=== PATIENT | female | born 1955 | race African-American/Black ===

== ENCOUNTER 2022-06-29 11:18 | Inpatient (IN) | payer MEDICARE, OTHER ==
[~2022-06-29] VITALS: Ht 170.2 cm; Wt 123.4 kg
[2022-06-29 12:24] LABS: HEMATOCRIT. 25.4 % (36.0-48.0); HEMOGLOBIN. 7.7 g/dL (12.0-16.0); MEAN CORPUSCULAR HEMOGLOBIN 20.8 pg (28.0-32.0); MEAN CORPUSCULAR VOLUME 68.1 fL (81.0-99.0); MEAN PLATELET VOLUME 9.1 fl (7.4-10.4); PLATELET 130 x1000/uL (130-400); RED BLOOD CELL COUNT 3.73 mill/uL (4.2-5.4); RED CELL DISTRIBUTION WIDTH 19.1 % (11.6-14.6)
[2022-06-29 12:27] LABS: CHLORIDE 109 mEq/L (98-107)
[2022-06-29] MEDS ORDERED: FUROSEMIDE 40MG/4ML VIAL IV ONE (12:30)
[2022-06-29] MEDS ORDERED: NITROGLYCERIN OINT 1GM/INCH UDPKT TD ONE (12:30)
[2022-06-29] MEDS: ASPIRIN 81MG TABLET PO ONE ×2 (14:13→14:32)
[2022-06-29 14:26] LABS: D-DIMER 6.61 mg/L FEU (<0.50); INR 1.1; PARTIAL THROMBOPLASTIN TIME 23.4 sec (23.4-31.0); PROTHROMBIN TIME 11.4 sec (9.6-11.0)
[2022-06-29] MEDS ORDERED: ACETAMINOPHEN 325MG TABLET PO PRN (18:00)
[2022-06-29] MEDS ORDERED: ONDANSETRON HCL 4MG/2ML INJ IV PRN (18:00)
[2022-06-29] MEDS ORDERED: IPRATROPIUM/ALBUTEROL 0.5-3(2.5)MG/3ML NEB HHN PRN (18:00)
[2022-06-29] MEDS ORDERED: DOCUSATE SODIUM 100MG CAPSULE PO PRN (18:00)
[2022-06-29] MEDS ORDERED: CLONIDINE 0.1MG TABLET PO PRN (18:00)
[2022-06-29] MEDS ORDERED: LORAZEPAM 0.5MG TABLET PO PRN (18:00)
[2022-06-29] MEDS ORDERED: NALOXONE HCL 0.4MG/ML VIAL IV PRN (18:00)
[2022-06-29] MEDS ORDERED: IOHEXOL-350 100 ML BOTTLE ONE (18:32)
[2022-06-29 18:37] LABS: PLATELET ESTIMATE NORMAL
[2022-06-29 22:15] VITALS: BP 122/68
[2022-06-29] MEDS ORDERED: AMLO5TAB88 PO (22:37)
[2022-06-29] MEDS ORDERED: FURO40TA5 PO (22:37)
[2022-06-29] MEDS ORDERED: FERR324T4 PO (22:37)
[2022-06-29] MEDS ORDERED: PANT40TA51 PO (22:37)
[2022-06-29] MEDS ORDERED: CYCL5TAB PO (22:37)
[2022-06-29] MEDS ORDERED: METO5TAB2 PO (22:37)
[2022-06-29] MEDS ORDERED: DICL75TA5 PO (22:37)
[2022-06-29] MEDS ORDERED: SCOP1PAT2 (22:37)
[2022-06-29] MEDS ORDERED: GABA-532 PO (22:37)
[2022-06-29] MEDS ORDERED: TIZA-204 PO (22:37)
[2022-06-29] MEDS ORDERED: SERT25TA74 PO (22:37)
[2022-06-29] MEDS ORDERED: LACT10SO3 PO (22:37)
[2022-06-29] MEDS ORDERED: MECL-217 PO (22:37)
[2022-06-29] MEDS ORDERED: PROP10TA10 PO (22:37)
[2022-06-29 23:28] VITALS: BP 122/68
[2022-06-30 00:05] VITALS: BP 115/66
[2022-06-30] MEDS: HYDROCODONE/ACETAMINOPHEN 5/325MG TABLET PO PRN ×2 (02:59→22:08)
[2022-06-30 04:00] VITALS: BP 95/62
[2022-06-30 05:56] LABS: BASOPHILS % 0.4 % (0.0-2.0); HEMATOCRIT. 25.3 % (36.0-48.0); HEMOGLOBIN. 7.6 g/dL (12.0-16.0); LYMPHOCYTES % 12.7 % (20.0-50.0); MEAN CORPUSCULAR HEMOGLOBIN 20.4 pg (28.0-32.0); MEAN PLATELET VOLUME 9.3 fl (7.4-10.4); MONOCYTES % 22.6 % (2.0-8.0); NEUTROPHILS % 64.3 % (40.0-76.0); PLATELET 109 x1000/uL (130-400); RED BLOOD CELL COUNT 3.72 mill/uL (4.2-5.4); RED CELL DISTRIBUTION WIDTH 18.9 % (11.6-14.6)
[2022-06-30 06:40] LABS: CHLORIDE 108 mEq/L (98-107)
[2022-06-30 08:00] VITALS: BP 112/60
[2022-06-30] MEDS: ACETAMINOPHEN 325MG TABLET PO PRN ×2 (09:58→20:09)
[2022-06-30 12:00] VITALS: BP 97/53
[2022-06-30] MEDS: PROPRANOLOL HCL 10MG TABLET PO SCH (14:00)
[2022-06-30 16:00] VITALS: BP 106/64
[2022-06-30 20:09] LABS: CLARITY URINE CLEAR (CLEAR); COLOR URINE YELLOW (YELLOW); KETONES URINE NEGATIVE (NEGATIVE); LEUKOCYTE ESTERASE URINE TRACE (NEGATIVE); NITRITE URINE NEGATIVE (NEGATIVE); OCCULT BLOOD URINE NEGATIVE (NEGATIVE); PH URINE 6.5 (4.5-8.0); PROTEIN URINE NEGATIVE (NEGATIVE); SPECIFIC GRAVITY URINE 1.013 (1.005-1.030)
[2022-06-30 20:30] VITALS: BP 103/56
[2022-07-01 00:16] VITALS: BP 98/59
[2022-07-01 04:00] VITALS: BP 92/57
[2022-07-01 07:42] LABS: HEMATOCRIT. 26.6 % (36.0-48.0); HEMOGLOBIN. 7.9 g/dL (12.0-16.0); MEAN CORPUSCULAR HEMOGLOBIN 20.1 pg (28.0-32.0); MEAN CORPUSCULAR VOLUME 67.5 fL (81.0-99.0); MEAN PLATELET VOLUME 9.2 fl (7.4-10.4); PLATELET 102 x1000/uL (130-400); RED BLOOD CELL COUNT 3.93 mill/uL (4.2-5.4); RED CELL DISTRIBUTION WIDTH 18.8 % (11.6-14.6)
[2022-07-01 08:00] VITALS: BP 107/59
[2022-07-01 08:39] LABS: CHLORIDE 110 mEq/L (98-107)
[2022-07-01] MEDS: PROPRANOLOL HCL 10MG TABLET PO SCH (08:56)
[2022-07-01 12:00] VITALS: BP 110/71
[2022-07-01] MEDS: ACETAMINOPHEN 325MG TABLET PO PRN (13:48)
[2022-07-01 16:00] VITALS: BP 114/72
[2022-07-01 16:49] LABS: PLATELET ESTIMATE DECREASED
[2022-07-01 18:04] LABS: T4 FREE 1.03 ng/dL (0.76-1.46)
[2022-07-01] MEDS ORDERED: POTASSIUM CHLORIDE 20MEQ TABLET SR PO NR (19:15)
[2022-07-01 20:00] VITALS: BP 100/66
[2022-07-01 20:43] LABS: *AMPHETAMINES SCREEN URINE NEGATIVE (NEGATIVE); *BARBITURATES SCREEN URINE NEGATIVE (NEGATIVE); *BENZODIAZEPINES SCREEN URINE NEGATIVE (NEGATIVE); *COCAINE SCREEN URINE NEGATIVE (NEGATIVE); CANNABINOID URINE SCREEN NEGATIVE (NEGATIVE); METHADONE URINE SCREEN NEGATIVE (NEGATIVE); OPIATES URINE SCREEN PRESUMTIVE POSITIVE (NEGATIVE); PHENCYCLIDINE URINE SCREEN NEGATIVE (NEGATIVE)
[2022-07-01] MEDS: HYDROCODONE/ACETAMINOPHEN 5/325MG TABLET PO PRN (23:16)
[2022-07-02] VITALS: BP 100/59
[2022-07-02 04:00] VITALS: BP 101/62
[2022-07-02 06:04] LABS: CHLORIDE 109 mEq/L (98-107)
[2022-07-02 06:28] LABS: HEMATOCRIT. 24.6 % (36.0-48.0); HEMOGLOBIN. 7.4 g/dL (12.0-16.0); MEAN CORPUSCULAR HEMOGLOBIN 20.2 pg (28.0-32.0); MEAN CORPUSCULAR VOLUME 66.8 fL (81.0-99.0); MEAN PLATELET VOLUME 9.4 fl (7.4-10.4); PLATELET 95 x1000/uL (130-400); RED BLOOD CELL COUNT 3.69 mill/uL (4.2-5.4); RED CELL DISTRIBUTION WIDTH 18.5 % (11.6-14.6)
[2022-07-02 08:00] VITALS: BP 102/72
[2022-07-02] MEDS: PROPRANOLOL HCL 10MG TABLET PO SCH (09:02)
[2022-07-02 12:00] VITALS: BP 98/61
[2022-07-02 16:00] VITALS: BP 90/56
[2022-07-02 20:00] VITALS: BP 114/69
[2022-07-02] MEDS: ACETAMINOPHEN 325MG TABLET PO PRN (20:08)
[2022-07-02 22:02] LABS: TOTAL IRON BINDING CAPACITY 297 ug/dL (250-450)
[2022-07-03] VITALS: BP 113/71
[2022-07-03 04:00] VITALS: BP 91/54
[2022-07-03 07:03] LABS: NUCLEATED RED BLOOD CELLS 1 /100 WBC; PLATELET ESTIMATE SLIGHTLY DECREASED
[2022-07-03 08:00] VITALS: BP 98/71
[2022-07-03] MEDS: PROPRANOLOL HCL 10MG TABLET PO SCH (09:00)
[2022-07-03] MEDS ORDERED: FERR325T6 MT (11:12)
[2022-07-03] MEDS ORDERED: IRON SUCROSE COMPLEX 100 MG/5 ML ML IV NR (11:15)
[2022-07-03 12:00] VITALS: BP 126/71
[2022-07-03 12:40] VITALS: BP 126/71
== END 2022-07-03 14:30 | disposition home health service (06) | DRG 137 ==
LOC: ER 11:18 → 7WST 16:29 → EDBEDREQTM 16:32 → EDBEDREQ 16:32 → 7EST 07-02 18:50
PROVIDERS: ADMIT Internal Medicine; ATTEND Internal Medicine
DX: U07.1 COVID-19 (principal); J96.00 Acute respiratory failure, unspecified whether with hypoxia or hypercapnia; E43 Unspecified severe protein-calorie malnutrition; D61.818 Other pancytopenia; K74.60 Unspecified cirrhosis of liver; I50.9 Heart failure, unspecified; I11.0 Hypertensive heart disease with heart failure; E83.51 Hypocalcemia; E78.5 Hyperlipidemia, unspecified; J98.11 Atelectasis; D50.9 Iron deficiency anemia, unspecified; G47.33 Obstructive sleep apnea (adult) (pediatric); E66.9 Obesity, unspecified; L80 Vitiligo; Z87.891 Personal history of nicotine dependence; Z90.49 Acquired absence of other specified parts of digestive tract; Z79.899 Other long term (current) drug therapy; Z90.710 Acquired absence of both cervix and uterus; Z68.41 Body mass index [BMI] 40.0-44.9, adult
CPT/HCPCS: 36415; 71045; 71275; 76700; 80048; 80053; 80305; 81003; 83540; 83550; 83735; 83880; 84145; 84439; 84443; 84481; 84484; 85025; 85379; 86850; 86900; 87426; 93005; 93306; 93970; 97162; 97530; 99285; J1940; Q9967